=== PATIENT | female | born 1990 | race Two or more races ===

== ENCOUNTER 2020-08-29 09:55 | Emergency (ER) | payer SELFPAY ==
[~2020-08-29] VITALS: Ht 180.3 cm; Wt 109.5 kg
[2020-08-29] MEDS ORDERED: SODIUM CHLORIDE 0.9% 1,000ML IVBOLUS ONE (10:30)
[2020-08-29] MEDS ORDERED: SODIUM CHLORIDE FLUSH 10ML SYR IVF ONE (10:30)
[2020-08-29 10:39] LABS: BASOPHILS % (AUTO) 1 % (0-1); EOSINOPHILS % (AUTO) 0 % (1-7); LYMPHOCYTES % (AUTO) 11 % (22-44); MEAN CORPUSCULAR HEMOGLOBIN 31.9 pg (27.0-34.8); MEAN CORPUSCULAR HGB CONC 34.3 g/dL (32.4-35.8); MEAN PLATELET VOLUME 7.7 fL (7.4-10.4); MONOCYTES % (AUTO) 14 % (2-9); NEUTROPHILS % (AUTO) 74 % (42-75); PLATELET COUNT 204 x10^3/uL (130-400); RED BLOOD COUNT 4.31 x10^6/uL (3.82-5.3); RED CELL DISTRIBUTION WIDTH 12.2 % (9.6-15.2)
[2020-08-29 10:45] LABS: ALBUMIN 3.2 g/dL (3.4-5.0); ANION GAP 8 mmol/L (5-15); CALCIUM 8.7 mg/dL (8.5-10.1); CHLORIDE 99 mmol/L (98-107); CREATININE 0.61 mg/dL (0.55-1.02)
[2020-08-29 10:47] LABS: MD NO
--- NOTE | 2020-08-29 10:55 | NUR ---
This pt presents to the ER with multiple complaints, all with different onset times. Pt states she began coughing with associated CP a week ago. States she had diarrhea 3 days ago that is now resolved. She complains of vaginal bleeding that started 2 days ago, but states that it's not her period as that just finished. Pt also states 2 negative tests at home. Pt connected all monitors.
[2020-08-29] MEDS ORDERED: POTASSIUM CHLORIDE 20 MEQ TAB.ER.PRT PO ONE (12:30)
--- NOTE | 2020-08-29 12:35 | NUR ---
Awaiting BC draw, then will medicate pt.
[2020-08-29] MEDS ORDERED: CEFTRIAXONE 1,000 MG in DEXTROSE 5% 50 ML IVPB ONE (13:00)
[2020-08-29] MEDS ORDERED: AZITHROMYCIN 500 MG in SODIUM CHLORIDE 0.9% 250 ML IV ONE (13:00)
[2020-08-29] MEDS ORDERED: POTASSIUM CHLORIDE 20 MEQ TAB.ER.PRT ONE (13:36)
[2020-08-29 15:06] VITALS: BP 102/53
== END 2020-08-29 15:16 | disposition home or self-care (01) ==
LOC: ED 11:18
DX: J15.9 Unspecified bacterial pneumonia (principal); N93.8 Other specified abnormal uterine and vaginal bleeding; N92.4 Excessive bleeding in the premenopausal period; E87.6 Hypokalemia; Z20.822 Contact with and (suspected) exposure to COVID-19; F17.200 Nicotine dependence, unspecified, uncomplicated; R19.7 Diarrhea, unspecified
CPT/HCPCS: 36415; 71046; 80048; 82040; 83605; 84703; 85025; 87040; 96361; 96365; 96375; 99285; J0456; J0696; J7030; J7050; U0003